=== PATIENT | male | born 1950 ===

== ENCOUNTER 2023-08-27 00:29 | Inpatient (IN) | payer MEDICARE, MEDICAID ==
[2023-08-27] MEDS ORDERED: Diltiazem 25 MG/5 ML SDV IVPUSH ONE (01:15)
[2023-08-27] MEDS ORDERED: Dexamethasone 4 MG/ML SDV IVPUSH ONE (01:19)
[2023-08-27] MEDS ORDERED: REMDESIVIR 200 MG in Sodium Chloride 0.9% 250 ML IV ONE (01:21)
[2023-08-27 01:27] LABS: BASOPHILS PERCENT AUTO 0.2 % (0.0-1.0); EOSINOPHILS PERCENT AUTO 0.1 % (1.0-3.0); HEMATOCRIT 49.8 % (40.0-54.0); HEMOGLOBIN 16.3 g/dL (14.0-18.0); LYMPHOCYTES PERCENT AUTO 5.5 % (20.5-50.1); MEAN CORPUSCULAR HEMOGLOBIN 29.4 pg (27.0-34.0); MEAN CORPUSCULAR HGB CONC 32.7 g/dL (33.0-35.0); MEAN CORPUSCULAR VOLUME 89.9 fL (80-100); MONOCYTES PERCENT AUTO 14.1 % (2-8); NEUTROPHILS PERCENT AUTO 80.1 % (42.2-75.2); PLATELET COUNT,PLT 173 10^3/uL (150-450); RED BLOOD CELL COUNT 5.54 10^6/uL (4.6-6.2); WHITE BLOOD CELL COUNT,WBC 9.3 10^3/uL (5.0-10.0)
[2023-08-27] MEDS: Sodium Chloride 0.9% 10 ML Syringe FLUSH PRN (01:30)
[2023-08-27] MEDS ORDERED: Acetaminophen 650 MG Supp RECTAL STA (01:33)
[2023-08-27 01:38] LABS: ALANINE AMINOTRANSFERASE,ALT 29 U/L (16-63); ALBUMIN 3.3 g/dL (3.4-5.0); ALKALINE PHOSPHATASE 76 U/L (46-116); ANION GAP 11.9 mEq/L (7-13); ASPARTATE AMNIOTRANSFERASE,AST 13 U/L (15-37); BILIRUBIN TOTAL 0.4 mg/dL (0.2-1.0); BLOOD UREA NITROGEN,BUN 27 mg/dL (7-18); BUN/CREATININE RATIO 11.9 (No establ ref range); CALCIUM 9.4 mg/dL (8.5-10.1); CARBON DIOXIDE,CO2 29 mmol/L (21-32); CHLORIDE,CL 103 mmol/L (98-107); CREATININE 2.26 mg/dL (0.70-1.30); GLUCOSE RANDOM 172 mg/dL (70-99); POTASSIUM,K 4.9 mmol/L (3.5-5.1); PROTEIN TOTAL,TP 7.7 g/dL (6.4-8.2); SODIUM,NA 139 mmol/L (136-145)
[2023-08-27 01:39] LABS: A/G RATIO 0.75; ESTIMATED GFR 30 mL/min (>=60)
[2023-08-27 01:42] LABS: LACTIC ACID 0.9 mmol/L (0.4-2.0)
[2023-08-27 01:57] LABS: APPEARANCE,URINE SLIGHTLY CLOUDY (CLEAR); BILIRUBIN,URINE NEGATIVE (NEGATIVE); COLOR,URINE YELLOW (YELLOW); GLUCOSE,URINE NEGATIVE (NEGATIVE); KETONES,URINE NEGATIVE (NEGATIVE); LEUKOCYTE ESTERASE,URINE NEGATIVE (NEGATIVE); NITRITE,URINE NEGATIVE (NEGATIVE); OCCULT BLOOD,URINE MODERATE (NEGATIVE); PH,URINE 6.5 (5.0-9.0); PROTEIN,URINE >=300 (NEGATIVE); UROBILINOGEN,URINE 0.2 mg/dL (0.2-1.0)
[2023-08-27 01:58] LABS: O2 DELIVERY DEVICE BIPAP
[2023-08-27 02:05] LABS: BASE EXCESS ARTERIAL -2 mmol/L ((-2)-(+3)); BICARBONATE,ARTERIAL 22.9 mmol/L (22-26); O2 SATURATION ARTERIAL 98 % (95-100); PCO2 ARTERIAL 41 mmHg (35-45); PH,ARTERIAL 7.37 (7.35-7.45); PO2 ARTERIAL 100 mmHg (70-100)
[2023-08-27 02:05] LABS: AMORPHOUS SEDIMENT,URINE FEW /HPF (NOT SEEN); BACTERIA,URINE FEW /HPF (0-FEW/HPF); EPITHELIAL CELLS,URINE FEW /HPF (NOT SEEN); MUCUS,URINE MODERATE /LPF (NOT SEEN); WBC,URINE 0-5 /HPF (0-5/HPF)
[2023-08-27 02:06] LABS: ALLEN TEST POSITIVE
[2023-08-27] MEDS ORDERED: Diltiazem 125 MG in Sodium Chloride 0.9% 100 ML IV SCH (02:30)
[2023-08-27] MEDS: Sodium Chloride 0.9% 250 ML IV SCH ×2 (04:30→04:43)
[2023-08-27] MEDS ORDERED: Bisacodyl 5 MG Tab PO PRN (04:46)
[2023-08-27] MEDS ORDERED: Docusate Sodium 100 MG Cap PO PRN (04:46)
[2023-08-27] MEDS ORDERED: Ondansetron 4 MG/2 ML SDV IVPUSH PRN (04:46)
[2023-08-27] MEDS ORDERED: Acetaminophen 650 MG Supp RECTAL PRN (04:46)
[2023-08-27] MEDS ORDERED: Azithromycin 500 MG in Sodium Chloride 0.9% 250 ML IV ONE (05:04)
[2023-08-27] MEDS ORDERED: Norepinephrine Bit/D5W Premix 250 ML IV SCH (05:15)
[2023-08-27] MEDS: cefTRIAXone 1 GM Vial IVPUSH SCH (05:30)
[2023-08-27 06:07] LABS: O2 DELIVERY DEVICE BIPAP
[2023-08-27 06:08] LABS: BASE EXCESS ARTERIAL -4 mmol/L ((-2)-(+3)); BICARBONATE,ARTERIAL 22.3 mmol/L (22-26); O2 SATURATION ARTERIAL 97 % (95-100); PCO2 ARTERIAL 47 mmHg (35-45); PO2 ARTERIAL 87 mmHg (70-100)
[2023-08-27 06:09] LABS: ALLEN TEST POSITIVE
[2023-08-27] MEDS ORDERED: Enoxaparin 40 MG/0.4 ML Syringe SUBCUT SCH (09:00)
[2023-08-27] MEDS: Enoxaparin 40 MG/0.4 ML Syringe SUBCUT SCH ×2 (11:54→20:05)
[2023-08-27] MEDS: Sodium Chloride 0.9% 1,000 ML IV SCH ×2 (14:09→16:56)
[2023-08-27] MEDS ORDERED: DOBUTamine/Dextrose 5%-Water 250 MG/250 ML BAG IV SCH (23:30)
[2023-08-28] MEDS ORDERED: Ketorolac 30 MG/ML SDV IVPUSH ONE (02:28)
[2023-08-28] MEDS: REMDESIVIR 100 MG in Sodium Chloride 0.9% 100 ML IV SCH ×2 (03:48→04:31)
[2023-08-28] MEDS ORDERED: Azithromycin 250 MG in Sodium Chloride 0.9% 250 ML IV SCH (05:15)
[2023-08-28] MEDS: cefTRIAXone 1 GM Vial IVPUSH SCH (05:51)
[2023-08-28 07:00] LABS: BASOPHILS PERCENT AUTO 0.1 % (0.0-1.0); HEMATOCRIT 40.1 % (40.0-54.0); HEMOGLOBIN 12.8 g/dL (14.0-18.0); LYMPHOCYTES PERCENT AUTO 11.9 % (20.5-50.1); MEAN CORPUSCULAR HEMOGLOBIN 29.3 pg (27.0-34.0); MEAN CORPUSCULAR HGB CONC 31.9 g/dL (33.0-35.0); MEAN CORPUSCULAR VOLUME 91.8 fL (80-100); MONOCYTES PERCENT AUTO 10.9 % (2-8); NEUTROPHILS PERCENT AUTO 77.1 % (42.2-75.2); PLATELET COUNT,PLT 181 10^3/uL (150-450); RED BLOOD CELL COUNT 4.37 10^6/uL (4.6-6.2); WHITE BLOOD CELL COUNT,WBC 6.8 10^3/uL (5.0-10.0)
[2023-08-28 07:14] LABS: ALBUMIN 2.5 g/dL (3.4-5.0); ANION GAP 12.8 mEq/L (7-13); BILIRUBIN TOTAL 0.2 mg/dL (0.2-1.0); BUN/CREATININE RATIO 19.7 (No establ ref range); CALCIUM 8.4 mg/dL (8.5-10.1); CREATININE 2.34 mg/dL (0.70-1.30); EST CRCL DRUG DOSING (CG) 29.9 mL/min; POTASSIUM,K 4.8 mmol/L (3.5-5.1); PROTEIN TOTAL,TP 6.1 g/dL (6.4-8.2)
[2023-08-28 07:20] LABS: A/G RATIO 0.69
[2023-08-28] MEDS: Dexamethasone 4 MG/ML SDV IVPUSH SCH (08:38)
[2023-08-28] MEDS: Enoxaparin 40 MG/0.4 ML Syringe SUBCUT SCH ×2 (08:39→22:21)
[2023-08-28 09:02] LABS: O2 DELIVERY DEVICE BIPAP
[2023-08-28 09:04] LABS: BASE EXCESS ARTERIAL -3 mmol/L ((-2)-(+3)); BICARBONATE,ARTERIAL 22.8 mmol/L (22-26); O2 SATURATION ARTERIAL 95 % (95-100); PCO2 ARTERIAL 47 mmHg (35-45); PH,ARTERIAL 7.31 (7.35-7.45); PO2 ARTERIAL 75 mmHg (70-100)
[2023-08-28 09:05] LABS: ALLEN TEST POSITIVE
[2023-08-28] MEDS: Sodium Chloride 0.9% 1,000 ML IV SCH (10:15)
[2023-08-28] MEDS ORDERED: Albuterol 0.083% 2.5 MG/3 ML Neb Soln INH PRN (12:08)
[2023-08-28] MEDS ORDERED: Magnesium Hydroxide 400 MG/5 ML Susp 30 ML Cup PO PRN (12:08)
[2023-08-28] MEDS ORDERED: Carboxymethylcellulose Sodium 1% Ophth Gel 0.4 ML UD EYEBOTH PRN (12:08)
[2023-08-28] MEDS ORDERED: Bisacodyl 10 MG Supp RECTAL PRN (12:08)
[2023-08-28] MEDS ORDERED: Diltiazem IR 30 MG Tab PO ONE (18:01)
[2023-08-28] MEDS ORDERED: Diltiazem 25 MG/5 ML SDV IVPUSH ONE (18:03)
[2023-08-28] MEDS: Metoprolol Tartrate 25 MG Tab PO SCH (18:18)
[2023-08-28] MEDS ORDERED: Metoprolol Tartrate 25 MG Tab PO SCH (21:00)
[2023-08-28] MEDS: risperiDONE 0.5 MG Tab PO SCH (22:21)
[2023-08-28] MEDS: Sennosides/Docusate Sodium 50-8.6 MG Tab PO SCH (22:21)
[2023-08-28] MEDS: Acetaminophen 325 MG Tab PO PRN (22:21)
[2023-08-29] MEDS: REMDESIVIR 100 MG in Sodium Chloride 0.9% 100 ML IV SCH (05:02)
[2023-08-29] MEDS: Metoprolol Tartrate 25 MG Tab PO SCH ×2 (05:02→17:47)
[2023-08-29] MEDS: cefTRIAXone 1 GM Vial IVPUSH SCH (05:02)
[2023-08-29 06:14] LABS: BASOPHILS PERCENT AUTO 0.1 % (0.0-1.0); HEMOGLOBIN 12.3 g/dL (14.0-18.0); LYMPHOCYTES PERCENT AUTO 9.8 % (20.5-50.1); MEAN CORPUSCULAR HEMOGLOBIN 28.9 pg (27.0-34.0); MEAN CORPUSCULAR HGB CONC 31.5 g/dL (33.0-35.0); MEAN CORPUSCULAR VOLUME 91.5 fL (80-100); MONOCYTES PERCENT AUTO 7.4 % (2-8); NEUTROPHILS PERCENT AUTO 82.7 % (42.2-75.2); PLATELET COUNT,PLT 207 10^3/uL (150-450); RED BLOOD CELL COUNT 4.26 10^6/uL (4.6-6.2); WHITE BLOOD CELL COUNT,WBC 7.1 10^3/uL (5.0-10.0)
[2023-08-29 06:39] LABS: ALBUMIN 2.6 g/dL (3.4-5.0); ANION GAP 13.8 mEq/L (7-13); BILIRUBIN TOTAL 0.2 mg/dL (0.2-1.0); BUN/CREATININE RATIO 26.7 (No establ ref range); CALCIUM 8.7 mg/dL (8.5-10.1); CREATININE 1.91 mg/dL (0.70-1.30); EST CRCL DRUG DOSING (CG) 36.63 mL/min; POTASSIUM,K 4.8 mmol/L (3.5-5.1)
[2023-08-29 06:40] LABS: A/G RATIO 0.76
[2023-08-29] MEDS: Dexamethasone 4 MG/ML SDV IVPUSH SCH (08:20)
[2023-08-29] MEDS: Enoxaparin 40 MG/0.4 ML Syringe SUBCUT SCH ×2 (08:25→21:14)
[2023-08-29] MEDS: Sennosides/Docusate Sodium 50-8.6 MG Tab PO SCH ×2 (08:26→21:13)
[2023-08-29] MEDS: Sertraline 50 MG Tab PO SCH (08:26)
[2023-08-29] MEDS: Acetaminophen 325 MG Tab PO PRN (21:14)
[2023-08-29] MEDS: risperiDONE 0.5 MG Tab PO SCH (21:14)
[2023-08-29] MEDS: Sodium Chloride 0.9% 10 ML Syringe FLUSH PRN (21:14)
[2023-08-30] MEDS: cefTRIAXone 1 GM Vial IVPUSH SCH (05:37)
[2023-08-30] MEDS: REMDESIVIR 100 MG in Sodium Chloride 0.9% 100 ML IV SCH (05:39)
[2023-08-30] MEDS: Metoprolol Tartrate 25 MG Tab PO SCH (05:40)
[2023-08-30 06:53] LABS: BASOPHILS PERCENT AUTO 0.2 % (0.0-1.0); HEMATOCRIT 39.6 % (40.0-54.0); HEMOGLOBIN 12.7 g/dL (14.0-18.0); LYMPHOCYTES PERCENT AUTO 19.4 % (20.5-50.1); MEAN CORPUSCULAR HEMOGLOBIN 29.2 pg (27.0-34.0); MEAN CORPUSCULAR HGB CONC 32.1 g/dL (33.0-35.0); MONOCYTES PERCENT AUTO 8.6 % (2-8); NEUTROPHILS PERCENT AUTO 71.8 % (42.2-75.2); PLATELET COUNT,PLT 218 10^3/uL (150-450); RED BLOOD CELL COUNT 4.35 10^6/uL (4.6-6.2)
[2023-08-30 07:02] LABS: ALBUMIN 2.6 g/dL (3.4-5.0); ANION GAP 12.8 mEq/L (7-13); BILIRUBIN TOTAL 0.3 mg/dL (0.2-1.0); BUN/CREATININE RATIO 29.9 (No establ ref range); CALCIUM 8.7 mg/dL (8.5-10.1); CREATININE 1.57 mg/dL (0.70-1.30); EST CRCL DRUG DOSING (CG) 44.56 mL/min; POTASSIUM,K 3.8 mmol/L (3.5-5.1)
[2023-08-30 07:08] LABS: A/G RATIO 0.76
[2023-08-30] MEDS: Dexamethasone 4 MG/ML SDV IVPUSH SCH (09:32)
[2023-08-30] MEDS: Enoxaparin 40 MG/0.4 ML Syringe SUBCUT SCH (09:46)
[2023-08-30] MEDS: Sertraline 50 MG Tab PO SCH (09:46)
[2023-08-30] MEDS: Sennosides/Docusate Sodium 50-8.6 MG Tab PO SCH (11:33)
== END 2023-08-30 10:32 | DRG 177 ==
LOC: DL.ED 00:29 → DL.MS 03:12 → UNDOADMIN 03:12 → DL.ED 03:25 → UNDOADMIN 04:46 → DL.MS 04:46
PROVIDERS: ADMIT Internal Medicine; ATTEND Internal Medicine
PROC: 5A09357 Assistance with Respiratory Ventilation, Less than 24 Consecutive Hours, Continuous Positive Airway Pressure (ICD-10-PCS; principal; 2023-08-27)
PROC: XW033E5 Introduction of Remdesivir Anti-infective into Peripheral Vein, Percutaneous Approach, New Technology Group 5 (ICD-10-PCS; 2023-08-27)
PROC: 3E0333Z Introduction of Anti-inflammatory into Peripheral Vein, Percutaneous Approach (ICD-10-PCS; 2023-08-27)
PROC: 4A033R1 Measurement of Arterial Saturation, Peripheral, Percutaneous Approach (ICD-10-PCS; 2023-08-27)
DX: U07.1 COVID-19 (principal); J96.01 Acute respiratory failure with hypoxia; N17.9 Acute kidney failure, unspecified; I48.92 Unspecified atrial flutter; N18.9 Chronic kidney disease, unspecified; R79.1 Abnormal coagulation profile; I48.91 Unspecified atrial fibrillation; N18.30 Chronic kidney disease, stage 3 unspecified; Z66 Do not resuscitate; F03.90 Unspecified dementia, unspecified severity, without behavioral disturbance, psychotic disturbance, mood disturbance, and anxiety; Z79.899 Other long term (current) drug therapy
CPT/HCPCS: 36415; 80053; 81001; 82728; 83605; 83735; 85025; 85379; 85610; 85730; 86140; 87040 ×2; 87077; 87186; 94660; 96365; 96368; 96375; 96376; 99285; A9270; J0248; J1100; J3490 ×3; J7050 ×3; 36600; 70450; 71045; 80202; 82803; 84443; 84484; 93005; 94762; 99233; 99239; J0456; J0696; J1650; J1885; J3370; J7030; J7040

== ENCOUNTER 2023-09-10 11:46 | Emergency (ER) | payer MEDICARE, MEDICAID ==
[~2023-09-10 11:46] MED LIST: Sodium Chloride 0.9% 10 ML Syringe FLUSH PRN
[2023-09-10 12:14] LABS: BASOPHILS PERCENT AUTO 0.4 % (0.0-1.0); EOSINOPHILS PERCENT AUTO 4.9 % (1.0-3.0); HEMOGLOBIN 14.7 g/dL (14.0-18.0); MEAN CORPUSCULAR HEMOGLOBIN 29.4 pg (27.0-34.0); MONOCYTES PERCENT AUTO 6.6 % (2-8); NEUTROPHILS PERCENT AUTO 74.1 % (42.2-75.2); PLATELET COUNT,PLT 269 10^3/uL (150-450); WHITE BLOOD CELL COUNT,WBC 9.8 10^3/uL (5.0-10.0)
[2023-09-10 12:36] LABS: ALBUMIN 2.9 g/dL (3.4-5.0); ANION GAP 12.5 mEq/L (7-13); BILIRUBIN TOTAL 0.8 mg/dL (0.2-1.0); BUN/CREATININE RATIO 19.1 (No establ ref range); CREATININE 2.09 mg/dL (0.70-1.30); EST CRCL DRUG DOSING (CG) 31.36 mL/min; POTASSIUM,K 4.5 mmol/L (3.5-5.1); PROTEIN TOTAL,TP 7.1 g/dL (6.4-8.2)
[2023-09-10 12:39] LABS: A/G RATIO 0.69
[2023-09-10] MEDS ORDERED: Dexamethasone 4 MG/ML SDV IVPUSH ONE (14:06)
[2023-09-10] MEDS ORDERED: Famotidine 20 MG/2 ML SDV IVPUSH ONE (14:06)
== END 2023-09-10 16:06 ==
LOC: DL.ED 11:46
DX: T78.40XA Allergy, unspecified, initial encounter (principal); B34.9 Viral infection, unspecified; Z79.01 Long term (current) use of anticoagulants; Z79.899 Other long term (current) drug therapy
CPT/HCPCS: 36415; 70450; 80053; 83605; 84484; 85025; 93005; 93010; 96374; 96375; 99284; 99284-25; J1100; J3490